=== PATIENT | female | born 1955 | race Caucasian/White ===

== ENCOUNTER 2023-07-06 09:24 | Day surgery (SDC) | payer BC ==
[2023-07-05 08:44] VITALS: BMI 39.1
[~2023-07-06 09:24] MED LIST: EPINEPHrine 0.3 MG in Ophthalmic Irrigation Solution 500 ML IRR SCH
[2023-07-06] MEDS ORDERED: Cyclopentolate 1% Opth Drop 2 ML BOT ONE (09:43)
[2023-07-06] MEDS ORDERED: PHENYLephrine 2.5% Ophth Soln 15 ml Bottle ONE (09:43)
[2023-07-06] MEDS ORDERED: Lidocaine 1% MPF 2 ML VIAL ONE (09:43)
[2023-07-06] MEDS ORDERED: Lidocaine 2% PF 5 ML VIAL ONE (11:35)
[2023-07-06] MEDS ORDERED: fentaNYL 50 mcg/mL 1 mL Vial ONE (11:35)
[2023-07-06] MEDS ORDERED: PROPOFOL 20 ML ONE (11:35)
[2023-07-06] MEDS ORDERED: Famotidine/PF 20 mg/2ml Vial ONE (11:49)
[2023-07-06] MEDS ORDERED: CEFAZOLIN 1 GM VIAL ONE (12:15)
[2023-07-06] MEDS ORDERED: Bupivacaine 0.75% 10 ML VIAL ONE (12:15)
[2023-07-06] MEDS ORDERED: Triamcinolone 40 MG/ML VIAL ONE (12:15)
[2023-07-06] MEDS ORDERED: Maxitrol 0.1% Opth Oint 3.5 GM TUBE ONE (12:15)
[2023-07-06] MEDS ORDERED: Lidocaine 4% PF 5 ML AMP ONE (12:15)
[2023-07-06] MEDS ORDERED: Ondansetron PF 4 MG/2 ML Vial ONE (12:16)
[2023-07-06] MEDS ORDERED: Dexamethasone 4 mg/ml Vial ONE (12:18)
[2023-07-06] MEDS ORDERED: ePHEDrine Sulfate 50 MG/10 ML VIAL ONE (12:29)
== END 2023-07-06 14:53 | disposition home or self-care (01) ==
LOC: SDC 09:24
PROVIDERS: ATTEND Ophthalmology Retina Specialist
PROC: 08H Eye, Insertion (ICD-10-PCS; principal; 2023-07-06)
DX: T85.22XA Displacement of intraocular lens, initial encounter (principal); Z88.5 Allergy status to narcotic agent; Z88.6 Allergy status to analgesic agent; Y77.8 Miscellaneous ophthalmic devices associated with adverse incidents, not elsewhere classified
CPT/HCPCS: J0171; J0690; J1100; J2001; J2405; J2704; J3010; J3301; J3490; S0028